=== PATIENT | male | born 1980 | race Two or more races ===

== ENCOUNTER 2019-02-09 01:54 | Emergency (ER) | payer MEDICAID ==
[~2019-02-09] VITALS: Ht 175.3 cm; Wt 72.6 kg
--- NOTE | 2019-02-09 02:00 | NUR ---
[id number] FROM STRE[address] C/O BODY ACHE AND SI WITH NO PLAN. DENIES HI, DENIES AUDITORY OR VISUAL HALLUCINATIONS. PT IS AAOX4 WITH STEADY GAIT ON AMBULATION. NO S/S OF AUE DISTRESS NOTED. RR EVEN AND UNLABORED. SI PRECAUTIONS IN PLACE. AWAITING MD FOR EVAL. WILL CONTINUE TO MONITOR PT
[2019-02-09 03:00] LABS: BASOPHILS # (AUTO) 0.1 /CMM (0.0-0.2); BASOPHILS % (AUTO) 0.9 % (0.0-2.0); HEMATOCRIT 42 % (39-51); HEMOGLOBIN 14.1 g/dL (13.5-17.5); LYMPHOCYTES # (AUTO) 2.7 /CMM (0.8-4.8); LYMPHOCYTES % (AUTO) 29.3 % (20.0-44.0); MEAN CORPUSCULAR HGB CONC 34 g/dl (31.0-36.0); MEAN CORPUSCULAR VOLUME 94 fL (80-96); MONOCYTES # (AUTO) 0.7 /CMM (0.1-1.30); MONOCYTES % (AUTO) 8.3 % (2.0-12.0); NEUTROPHILS # (AUTO) 5.2 /CMM (1.8-8.9); NEUTROPHILS % (AUTO) 57.5 % (43.0-81.0); PLATELET COUNT (AUTO) 257 /CMM (150-450); RED BLOOD CELL COUNT(AUTO) 4.44 MIL/uL (4.5-6.0); WHITE BLOOD COUNT (AUTO) 9.1 K/uL (4.3-11.0)
[2019-02-09 03:03] LABS: APPEARANCE,URINE Clear (CLEAR); BILIRUBIN,URINE Negative (NEGATIVE); BLOOD, URINE Negative Ery/uL (NEGATIVE); COLOR,URINE Yellow (YELLOW); KETONES,URINE Negative (NEGATIVE); LEUKOCYTE ESTERASE ,URINE Negative (NEGATIVE); NITRITE, URINE Negative (NEGATIVE); PROTEIN,URINE Negative (NEGATIVE); UGLUCOSE Negative (NEGATIVE)
[2019-02-09 03:10] LABS: CALCIUM, SERUM 8.5 mg/dL (8.5-10.1); CARBON DIOXIDE 27 mmol/L (21-32); CHLORIDE 105 mmol/L (98-107); CREATININE 0.8 mg/dL (0.6-1.3); GLUCOSE 96 mg/dL (74-106); POTASSIUM 4.5 mmol/L (3.5-5.1); SODIUM SERUM 141 mmol/L (136-145); UREA NITROGEN, BLOOD 8 mg/dL (7-18)
[2019-02-09 03:13] LABS: BACTERIA,URINE None seen /HPF (None Seen); RBC,URINE 0-2 /HPF (0-2); SQUAMOUS EPITHELIAL CELL,UR Few /HPF (None Seen); WBC,URINE 0-2 /HPF (0-3)
[2019-02-09 03:15] LABS: ACETAMINOPHEN 0 ug/ml (10-30); ALANINE AMINOTRANSFERASE 28 U/L (12-78); ALBUMIN 3.4 g/dL (3.4-5.0); ALCOHOL, BLOOD < 3 mg/dL (0-0); ALKALINE PHOSPHATASE 71 U/L (46-116); ASPARTATE AMINOTRANSFERASE 20 U/L (15-37); BILIRUBIN,DIRECT 0.1 mg/dL (0.0-0.2); BILIRUBIN,TOTAL 0.4 mg/dL (0.2-1.0); SALICYLATE 6.5 mg/dL (2.8-20.0); TOTAL PROTEIN, SERUM 6.3 g/dL (6.4-8.2)
--- NOTE | 2019-02-09 06:06 | NUR ---
PT ACCEPTED TO [facility] BY DR BECKHAM. # FOR REPORT [phone]. [facility] CALLED FOR TRANSPORT. ETA [id number]. TRIP# [id number]
[2019-02-09 06:12] VITALS: BP 130/92
--- NOTE | 2019-02-09 06:12 | NUR ---
REPORT GIVEN TO [facility]RAKES INSPECTOR ENRICO AT [facility] FOR MAGALY.
--- NOTE | 2019-02-09 06:12 | NUR ---
Patient is resting comfortably in bed with eyes closed. Easily aroused. VSS
--- NOTE | 2019-02-09 07:29 | NUR ---
REPORT GIVEN TO [facility]. [facility]
--- NOTE | 2019-02-09 07:31 | NUR ---
REPORT GIVEN TO MARGIE LUNSFORD FOR MAGALY
== END 2019-02-09 07:33 ==
LOC: ER 01:58
DX: R45.851 Suicidal ideations (principal); F10.10 Alcohol abuse, uncomplicated; F17.200 Nicotine dependence, unspecified, uncomplicated; Y90.0 Blood alcohol level of less than 20 mg/100 ml
CPT/HCPCS: 36415; 80048; 80076; 80305; 80307; 80329; 81001; 85025; 99285; G0480; 81000-TC